=== PATIENT | female | born 1965 | race Caucasian/White ===

== ENCOUNTER 2017-07-07 06:23 | Day surgery (SDC) | payer BC ==
[~2017-07-07 06:23] MED LIST: Lidocaine 1%/Sod Bicarbonate in NS 8.4% 1 ML Syringe IDERM PRN; Sodium Chloride 0.9% 10 ML Syringe FLUSH PRN
[2017-07-07] MEDS: Lactated Ringers 1,000 ML IV SCH ×2 (06:45→10:54)
[2017-07-07] MEDS ORDERED: Sodium Chloride 0.9% 50 ML SDV ONE (07:42)
[2017-07-07] MEDS ORDERED: Lidocaine 1% with EPINEPHrine 1:100,000 20 ML MDV ONE (07:42)
[2017-07-07] MEDS ORDERED: Bupivacaine 0.5% 30 ML SDV ONE (07:42)
--- NOTE | 2017-07-07 08:19 | PCM.PREANE ---
Preanesthetic Assessment - Anesthesia/Transfusion/Family Hx Anesthesia History: Prior Anesthesia Without Reaction Family History of Anesthesia Reaction: No Transfusion History: No Prior Transfusion(s) - Review of Systems General: No Symptoms Pulmonary: Cough (smokers ), Sputum (smokers) Cardiovascular: No Symptoms Gastrointestinal: No Symptoms Neurological: No Symptoms Other: Reports: None - Physical Assessment NPO Status Date: 07/06/17 NPO Status Time: 22:00 Pulse: 83 O2 Sat by Pulse Oximetry: 95 Respiratory Rate: 16 Blood Pressure: 124/97 Temperature: 37.1 C Vital Signs: Last Vital Signs Temp 37.1 C 07/07/17 06:25 Pulse 83 07/07/17 06:25 Resp 16 07/07/17 06:25 BP 124/97 H 07/07/17 06:25 Pulse Ox 95 07/07/17 06:25 Height: 1.57 m Weight: 71.668 kg ASA Class: 2 Mental Status: Alert & Oriented x3 Dentition: Reports: Normal Dentition, [place](s), [place] Thyro-Mental Finger Breadths: 2 Mouth Opening Finger Breadths: 2 ROM/Head Extension: Full Lungs: Clear to Auscultation, Normal Respiratory Effort Cardiovascular: Regular Rate, Regular Rhythm, No Murmurs - Lab Values: Laboratory Last Values WBC 10.85 K/mm3 (3.98-10.04) H 07/05/17 11:45 RBC 4.23 M/mm3 (3.98-5.22) 07/05/17 11:45 Hgb 14.0 gm/L (11.2-15.7) 07/05/17 11:45 Hct 41.7 % (34.1-44.9) 07/05/17 11:45 MCV 98.6 fl (79.4-94.8) H 07/05/17 11:45 MCH 33.1 pg (25.6-32.2) H 07/05/17 11:45 MCHC 33.6 g/dl (32.2-35.5) 07/05/17 11:45 RDW Std Deviation 45.2 fL (36.4-46.3) 07/05/17 11:45 Plt Count 329 K/mm3 (182-369) 07/05/17 11:45 MPV 10.0 fl (9.4-12.3) 07/05/17 11:45 Neut % (Auto) 68.8 % (34.0-71.1) 07/05/17 11:45 Lymph % (Auto) 22.7 % (19.3-51.7) 07/05/17 11:45 [place] % (Auto) 6.4 % (4.7-12.5) 07/05/17 11:45 Eos % (Auto) 1.2 (0.7-5.8) 07/05/17 11:45 Baso % (Auto) 0.7 % (0.1-1.2) 07/05/17 11:45 Neut # (Auto) 7.47 K/mm3 (1.56-6.13) H 07/05/17 11:45 Lymph # (Auto) 2.46 K/mm3 (1.18-3.74) 07/05/17 11:45 [place] # (Auto) 0.69 K/mm3 (0.24-0.36) H 07/05/17 11:45 Eos # (Auto) 0.13 K/mm3 (0.04-0.36) 07/05/17 11:45 Baso # (Auto) 0.08 K/mm3 (0.01-0.08) 07/05/17 11:45 Creatinine 0.9 mg/dL (0.55-1.02) 07/05/17 11:50 Est Cr Clr Drug Dosing TNP 07/05/17 11:50 Estimated GFR (MDRD) > 60 mL/min (>60) 07/05/17 11:50 Urine Color Yellow (Yellow) 07/05/17 11:45 Urine Appearance Clear (Clear) 07/05/17 11:45 Urine pH 6.5 (5.0-8.0) 07/05/17 11:45 Ur Specific [place] 1.010 (1.005-1.030) 07/05/17 11:45 Urine Protein Negative (Negative) 07/05/17 11:45 Urine Glucose (UA) Negative (Negative) 07/05/17 11:45 Urine Ketones Negative (Negative) 07/05/17 11:45 Urine Occult Blood 1+ (Negative) H 07/05/17 11:45 Urine Nitrite Negative (Negative) 07/05/17 11:45 Urine Bilirubin Negative (Negative) 07/05/17 11:45 Urine Urobilinogen 0.2 (0.2-1.0) 07/05/17 11:45 Ur Leukocyte Esterase Negative (Negative) 07/05/17 11:45 Blood Type A POSITIVE 07/05/17 11:45 Gel Antibody Screen Negative 07/05/17 11:45 - Allergies Allergies/Adverse Reactions: Allergies Allergy/AdvReac Type Severity Reaction Status Date / Time codeine Allergy Headache Verified 07/06/17 14:06 - Anesthesia Plan Pre-Op Medication Ordered: None - Acknowledgements Anesthesia Type Planned: General Anesthesia Pt an Appropriate Candidate for the Planned Anesthesia: Yes Alternatives and Risks of Anesthesia Discussed w Pt/Guardian: Yes Pt/Guardian Understands and Agrees with Anesthesia Plan: Yes PreAnesthesia Questionnaire HEENT History: Reports: None, Impaired Vision Cardiovascular History: Reports: None Respiratory History: Reports: None Gastrointestinal History: Reports: GERD 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: Musculoskeletal History: Reports: None Neurological History: Reports: None Psychiatric History: Reports: None Endocrine/Metabolic History: Reports: None Hematologic History: Reports: None Immunologic History: Reports: None Oncologic (Cancer) History: Reports: None Dermatologic History: Reports: None - Past Surgical History Head Surgeries/Procedures: Reports: None HEENT Surgical History: Reports: Adenoidectomy, Tonsillectomy, Other (See Below) Other HEENT Surgeries/Procedures: cleft lip repair Cardiovascular Surgical History: Reports: None Respiratory Surgical History: Reports: None GI Surgical History: Reports: None Female Surgical History: Reports: Tubal Ligation Endocrine Surgical History: Reports: None Neurological Surgical History: Reports: None Musculoskeletal Surgical History: Reports: None Oncologic Surgical History: Reports: None Dermatological Surgical History: Reports: None - SUBSTANCE USE Smoking Status *Q: Current Every Day Smoker Tobacco Use Within Last Twelve Months: Cigarettes Second Hand Smoke Exposure: Yes Days Per Week of Alcohol Use: 5 Number of Drinks Per Day: 2 Total Drinks Per Week: 10 Recreational Drug Use History: No - HOME MEDS Home Medications: Home Meds . [No Known Home Meds] 07/06/17 [History] - CURRENT (IN HOUSE) MEDS Current Meds: Current Medications Lactated Ringer's (Ringers, Lactated) 1,000 mls @ 125 mls/hr IV ASDIRECTED DEBO Stop: 07/07/17 23:00 Last Admin: 07/07/17 06:45 Dose: 125 mls/hr Lidocaine/Sodium Bicarbonate (Buffered Lidocaine 1% In Ns 8.4%) 0.25 ml IDERM ONETIME PRN PRN Reason: Prior to IV Start Stop: 07/07/17 18:00 Last Admin: 07/07/17 06:44 Dose: 0.25 ml Sodium Chloride (Saline Flush) 10 ml FLUSH ASDIRECTED PRN PRN Reason: Keep Vein Open Stop: 07/07/17 18:00 Discontinued Medications Bupivacaine HCl (Marcaine 0.5%) Confirm Administered Dose 30 ml .ROUTE .STK-MED ONE Stop: 07/07/17 07:43 Lidocaine/Epinephrine (Xylocaine 1% With Epinephrine 1:100,000) Confirm Administered Dose 20 ml .ROUTE .STK-MED ONE Stop: 07/07/17 07:43 Sodium Chloride (Normal Saline) Confirm Administered Dose 50 ml .ROUTE .STK-MED ONE Stop: 07/07/17 07:43
[2017-07-07] MEDS ORDERED: Midazolam 1 MG/ML 2 ML SDV ONE (08:44)
[2017-07-07] MEDS ORDERED: Ondansetron 4 MG/2 ML SDV ONE (08:44)
[2017-07-07] MEDS ORDERED: Propofol 200 MG/20 ML SDV ONE (08:44)
[2017-07-07] MEDS ORDERED: fentaNYL 250 MCG/5 ML SDV ONE (08:44)
[2017-07-07] MEDS ORDERED: Rocuronium 50 MG/5 ML Vial ONE (08:44)
[2017-07-07] MEDS ORDERED: ceFAZolin 1 GM Vial ONE (08:45)
[2017-07-07] MEDS ORDERED: Lidocaine 1% 4 ML ONE (08:45)
[2017-07-07] MEDS ORDERED: Dexamethasone 4 MG/ML 5 ML MDV ONE (08:45)
[2017-07-07] MEDS ORDERED: diphenhydrAMINE 50 MG/ML SDV ONE (08:45)
[2017-07-07] MEDS ORDERED: HYDROmorphone 0.5 MG/0.5 ML Syringe ONE ×2 (09:29→09:30)
[2017-07-07] MEDS ORDERED: fentaNYL 100 MCG/2 ML SDV IVPUSH PRN (10:29)
[2017-07-07] MEDS ORDERED: Ondansetron 4 MG/2 ML SDV IVPUSH PRN (10:29)
[2017-07-07] MEDS ORDERED: Acetaminophen/oxyCODONE 325-5 MG Tab PO PRN (10:29)
--- NOTE | 2017-07-07 10:29 | PCM.POSTAN ---
POST ANESTHESIA ASSESSMENT - MENTAL STATUS Mental Status: Alert, Oriented - VITAL SIGNS Pulse Rate: 82 SaO2: 98 Resp Rate: 13 Blood Pressure: 83/35 Temperature: 36.6 C - RESPIRATORY Respiratory Status: Respiratory Rate WNL, Supplemental Oxygen - CARDIOVASCULAR CV Status: Blood Pressure Stable, Low Blood Pressure - GASTROINTESTINAL GI Status: No Symptoms - PAIN Pain Score: 0 - POST OP HYDRATION Hydration Status: Adequate & Stable - OBSERVATIONS Free Text/Narrative:: no anesthesia complications noted
[2017-07-07] MEDS ORDERED: traMADol 50 MG Tab PO PRN (10:31)
--- NOTE | 2017-07-07 10:40 | PCM.OPNOTE ---
- General Post-Op/Procedure Note Date of Surgery/Procedure: 07/07/17 Operative Procedure(s): Laparoscopic-assisted total vaginal hysterectomy with bilateral salpingectomy and left oophorectomy Findings: Patient is uterus is upper limits normal size to mildly enlarged. Floppy tubes bilaterally were status post tubal ligation with Hulka clips 2 on each side. Moderate scarring noted on the left side with the ovary and fallopian tube adhered somewhat to the backside of the uterus. Appendix looked normal. Liver edge looked normal. No other abnormalities present. Right ovary appeared normal and per patient desire was left in place. Left ovary was removed. 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 Complications: None Condition: Good Free Text/Narrative:: Surgery duration: 72 minutes Procedure note: The patient was taken to the operating room placed in supine position on the operating table. She received 2 g of Ancef preoperatively for infection prophylaxis. She had signed consent previously. After adequate anesthesia patient was placed in a dorsal lithotomy position. It should be noted she had sequential compression stockings in place for DVT prophylaxis. A uterine manipulator was placed as was an latex free indwelling bladder catheter. This was done after adequate prepping and draping. The patient was placed in supine position and four laparoscopic port sites were developed. Marcaine 0.5% approximately 3-5 mL was injected at each site. Varies needle was placed and pneumoperitoneum was achieved with 3 L of CO2. Infraumbilical, suprapubic and 2 lateral port sites were developed. Under laparoscopic guidance the upper portion of the hysterectomy was performed. The the mesosalpinx was developed using the Enseal vessel closure system., right round ligament ligament was elevated and crossclamped using the endoseal computerized cautery device. The round ligament was taken down to the broad ligament. At this time attention was turned to the left side and the left infundibulopelvic ligament and the triple ligament were then taken down in a similar fashion, removing the left ovary. Broad ligament was taken down to the area of the uterine vasculature. Uterine vasculature was developed in the usual fashion using the cautery system. Both uterine arteries were identified and developed. Vaginal approach was then undertaken. The patient was placed in the dorsal lithotomy position and a weighted speculum was placed in the vagina. The cervix was injected with lidocaine quarter percent with epinephrine 20 mL total. A full circumference incision was made through the epithelium around the cervix. Posterior cul-de-sac was entered without problems. The left uterosacral ligament and then the right uterosacral were taken down using the Enseal vessel closure system. The cardinal ligament and what remained of the uterine vascular vessels and cervical branches of the vessels were managed with the Enseal vessel closure system on each side. Anterior cul-de-sac was then entered and the remaining portion of broad ligament on the right side and a small portion of broad ligament remaining on the left side were then developed in the usual fashion. Uterus was then removed. At this point the uterus was completely removed and sent as specimen. The vaginal cuff was then run with a locked running suture of 0 Monocryl from the 2 o'clock position to the 10 o'clock position. The vagina was closed with a running locked suture of 0 Monocryl. Hemostasis was confirmed this time and no bleeding was noted. Laparoscopy was then performed to ensure hemostasis. Pneumoperitoneum was reestablished and the laparoscope was placed. The pelvis was found to be hemostatically intact. There was no evidence of any bowel adhesion to the vaginal cuff area noted. The sleeves were removed under direct visualization and the upper sleeve was removed after reversal of the pneumoperitoneum. Each of these sites were closed with a single interrupted suture of 3-0 Monocryl. They were further approximated with Dermabond skin glue. At this point the patient was awakened from general endotracheal anesthesia. The Capellan catheter had been removed by this time. She is discharged from the operating room in good condition.
== END 2017-07-07 13:30 | disposition home or self-care (01) ==
LOC: JD.SDS 06:23
PROVIDERS: ATTEND Obstetrics & Gynecology
DX: N85.02 Endometrial intraepithelial neoplasia [EIN] (principal); N87.9 Dysplasia of cervix uteri, unspecified; N83.02 Follicular cyst of left ovary; N80.2 Endometriosis of fallopian tube; R23.4 Changes in skin texture; Z88.8 Allergy status to other drugs, medicaments and biological substances; F17.210 Nicotine dependence, cigarettes, uncomplicated
CPT/HCPCS: 36415; 58552; 81003; 82565; 85025; 86850; 86900; 86901; A9270; J0690; J1100; J1170; J1200; J2250; J2405; J3010; J7120; 00840; J2704

== ENCOUNTER 2020-08-14 20:22 | Emergency (ER) | payer BC, OTHER ==
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
== END 2020-08-14 21:41 | disposition home or self-care (01) ==
LOC: JD.ED 20:22
DX: R43.8 Other disturbances of smell and taste (principal); Z72.0 Tobacco use; Z88.5 Allergy status to narcotic agent
CPT/HCPCS: 80306; 99283; 99284

== ENCOUNTER 2023-05-05 23:06 | Emergency (ER) | payer OTHER | END 2023-05-06 00:06 | disposition home or self-care (01) | LOC: JD.ED 23:06 | DX: S01.81XA Laceration without foreign body of other part of head, initial encounter (principal); F17.210 Nicotine dependence, cigarettes, uncomplicated; Z88.5 Allergy status to narcotic agent; W01.198A Fall on same level from slipping, tripping and stumbling with subsequent striking against other object, initial encounter; Y92.009 Unspecified place in unspecified non-institutional (private) residence as the place of occurrence of the external cause | CPT/HCPCS: 12013; 99282; 99283 ==